=== PATIENT | female | born 1965 | race American Indian/Alaskan Native ===

== ENCOUNTER 2019-09-30 12:41 | Outpatient (CLI) | payer OTHER ==
--- NOTE | 2019-10-03 13:16 | Mammography Report ---
DIGITAL SCREENING MAMMOGRAM WITH CAD, 09/30/2019 INDICATION: Routine screening mammography. TECHNIQUE: Digital bilateral 2D mammography was obtained in the craniocaudal and mediolateral obliq ue projections. This examination was interpreted with the benefit of Computer-Aided Detection analysi s. COMPARISON: 07/17/2015 FINDINGS: Breast Density: The breasts are heterogeneously dense, which may obscure small masses. New bilateral circumscribed masses require additional imaging. Several bilateral circumscribed masses are stable compared to the last exam. No architectural distortion or suspicious calcifications of ei ther breast. IMPRESSION: Bilateral circumscribed masses requiring additional imaging. Recommend recall for bilater al spot compression views and bilateral targeted breast ultrasound. Follow up recommendation: Special View: Spot Category 0: Incomplete. Needs additional imaging evaluation and/or prior mammograms for comparison. A "normal" or negative report should not discourage follow up or biopsy of a clinically significant f inding. A written summary of these findings will be mailed to the patient. The patient will be entered into a mammography reporting system which will generate a reminder letter for the patient's next appointmen t at the appropriate interval. The [employer] recommends yearly mammograms starting at age 40 and continuing as l tolu as a woman is in good health. Breast MRI is recommended for women with an approximate 20-25% or greater lifetime risk of breast cancer, including women with a strong family history of breast or ova aaron cancer or who have been treated for Hodgkin's disease. Signer Name: Renard Ashraf MD Signed: 10/03/2019 1:12 PM Workstation Name: [id number]
== END 2019-09-30 12:42 | disposition home or self-care (01) ==
LOC: MAMMO 12:41
PROVIDERS: ATTEND Family Medicine
DX: Z12.31 Encounter for screening mammogram for malignant neoplasm of breast (principal)
CPT/HCPCS: 77067

== ENCOUNTER 2021-10-10 13:58 | Outpatient (CLI) | payer BC ==
--- NOTE | 2021-10-10 16:46 | Mammography Report ---
DIGITAL SCREENING MAMMOGRAM WITH CAD, 10/10/2021 CLINICAL INFORMATION / INDICATION: Routine screening TECHNIQUE: Digital bilateral 2D mammography was obtained in the craniocaudal and mediolateral obliqu e projections. This examination was interpreted with the benefit of Computer-Aided Detection analysis . COMPARISON: 09/30/2019 FINDINGS: Breast Density: There are scattered areas of fibroglandular density. No dominant mass, suspicious calcifications, or architectural distortion in either breast. Left nodularity is stable. Interval right biopsy changes are seen with significant decrease in the pr ior density. IMPRESSION: No mammographic evidence of malignancy. Follow up recommendation: Routine yearly BI-RADS Category 2: BENIGN. A "normal" or negative report should not discourage follow up or biopsy of a clinically significant f inding. A written summary of these findings will be mailed to the patient. The patient will be entered into a mammography reporting system which will generate a reminder letter for the patient's next appointmen t at the appropriate interval. The [employer] recommends yearly mammograms starting at age 40 and continuing as l tolu as a woman is in good health. Breast MRI is recommended for women with an approximate 20-25% or greater lifetime risk of breast cancer, including women with a strong family history of breast or ova aaron cancer or who have been treated for Hodgkin's disease. Signer Name: Yeyo Tolbert MD Signed: 10/10/2021 4:42 PM Workstation Name: [id number]
== END 2021-10-10 13:59 | disposition home or self-care (01) ==
LOC: MAMMO 13:58
DX: Z12.31 Encounter for screening mammogram for malignant neoplasm of breast (principal); N64.89 Other specified disorders of breast
CPT/HCPCS: 77067